=== PATIENT | female | born 1965 | race Caucasian/White ===

== ENCOUNTER 2017-07-04 14:29 | Outpatient (CLI) ==
[2013-04-13 14:42] VITALS: TEMP 97
[2016-03-30 18:19] VITALS: BMI 31.2
[2017-07-04 14:45] LABS: BILIRUBIN,URINE Negative (NEGATIVE); KETONES,URINE 1+ (NEGATIVE); LEUKOCYTE ESTERASE ,URINE Negative (NEGATIVE); NITRITE,URINE Negative (NEGATIVE); PROTEIN,URINE Negative (NEGATIVE); URINE, BLOOD Trace-intact (NEGATIVE)
[2017-07-04 14:46] LABS: ADD URINE MICROSCOPIC YES
[2017-07-04 14:54] LABS: COCAIN SCREEN,URINE NEGATIVE (NEGATIVE)
== END 2017-07-04 14:30 | disposition home or self-care (01) ==
LOC: LAB 14:29
PROVIDERS: ATTEND Nurse Practitioner Family
DX: M54.9 Dorsalgia, unspecified (principal); G89.29 Other chronic pain; Z79.899 Other long term (current) drug therapy
CPT/HCPCS: 80306; 81001

== ENCOUNTER 2017-07-19 08:38 | Outpatient (CLI) ==
[2013-04-13 14:42] VITALS: TEMP 97
[2016-03-30 18:19] VITALS: BMI 31.2
--- NOTE | 2017-07-19 10:35 | MAMMO ---
EXAM: Bilateral digital screening mammogram (2-D and 3-D) History: Baseline screening Comparison: None available. Findings: MLO and CC views of bilateral breasts demonstrate scattered fibroglandular breast parenchy ma. CAD was reviewed by the radiologist. Tomosynthesis was performed. There are no dominant masses , no suspicious microcalcifications and no architectural distortions. Impression: Negative mammogram. Recommend followup routine screening mammography in 1 year. BIRADS 1
--- NOTE | 2017-07-21 00:19 | MRI ---
EXAM: MRI of the thoracic spine . HISTORY: Pain in thoracic spine. COMPARISON: None of this type. PROCEDURE: Multiplanar, multisequence MRI protocol including sagittal T1-weighted, sagittal T2-weigh job, sagittal inversion recovery, coronal T2-weighted, axial T1-weighted and axial T2-weighted images . FINDINGS: Vertebral alignment demonstrates a normal kyphotic curvature mild dextroconvex curvature o f about 8 degrees. Vertebral body height is generally well maintained. In addition, there is minimal impression of the superior endplate of T12 associated with decreased T1W and increased in grain righ t ovary signal in the upper half of the vertebral bodies suggesting an acute to subacute compression fracture. Marrow signal is otherwise within normal limits for age with exception of Modic type 1 sig nal changes in the anterior-superior endplate of T11 associated with a prominent ventral osteophyte. The intervertebral discs are generally well maintained respect to height and signal with modest jeremie ccation seen in the mid to lower thoracic discs. The caliber of the spinal canal is intrinsically wi thin normal limits. The spinal cord is normal in caliber and signal. The conus medullaris is normal in level and contour and signal. The prevertebral and paraspinous soft tissues appear to be within normal limits. Segmental analysis: C7-T1: There is no significant disc bulge at this level. The spinal canal is normal in caliber. The spinal cord is not significantly displaced or deformed. The neural foramina are not stenosed. T1-T2: There is no significant disc bulge at this level. The spinal canal is normal in caliber. The spinal cord is not significantly displaced or deformed. The neural foramina are not stenosed. T2-T3: There is no significant disc bulge at this level. The spinal canal is normal in caliber. The spinal cord is not significantly displaced or deformed. The neural foramina are not stenosed. T3-T4: There is no significant disc bulge at this level. The spinal canal is normal in caliber. The spinal cord is not significantly displaced or deformed. The neural foramina are not stenosed. T4-T5: There is no significant disc bulge at this level. The spinal canal is normal in caliber. The spinal cord is not significantly displaced or deformed. The neural foramen are not stenosed. T5-T6: There is no significant disc bulge at this level. The spinal canal is normal in caliber. The spinal cord is not significantly displaced or deformed. There is mild right foraminal stenosis due to facet arthropathy. T6-T7: There is no significant disc bulge at this level. The spinal canal is normal in caliber. The spinal cord is not significantly displaced or deformed. The neural foramina are not stenosed. T7-T8: There is no significant disc bulge at this level. The spinal canal is normal in caliber. The spinal cord is not significantly displaced or deformed. The neural foramina are not stenosed. T8-T9: There is no significant disc bulge at this level. The spinal canal is normal in caliber. The spinal cord is not significantly displaced or deformed. There is mild left foraminal stenosis. T9-T10: There is no significant disc bulge at this level. The spinal canal is normal in caliber. Th e spinal cord is not significantly displaced or deformed. There is mild bilateral foraminal stenosis. T10-T11: There is no significant disc bulge at this level. The spinal canal is normal in caliber. Th e spinal cord is not significantly displaced or deformed. There is mild right greater than left randy inal stenosis. T11-T12: There is no significant disc bulge at this level. The spinal canal is normal in caliber. Th e spinal cord is not significantly displaced or deformed. The neural foramina are not stenosed. T12-L1: There is no significant disc bulge at this level. The spinal canal is normal in caliber. The spinal cord is not significantly displaced or deformed. The neural foramina are not stenosed. IMPRESSION: 1.The MRI examination demonstrates decreased T1W and increased inversion recovery signal in the upper half of T12 suggesting the presence of an acute compression fracture. This is a potential cause of the patient's thoracic spine pain. The remaining thoracic vertebrae demonstrate normal height and si gnal. There are modic type 1 endplate changes in the anterior-superior endplate of T11 associated ve ntral spondylosis. 2.The remaining thoracic vertebrae are normal in height, alignment and signal. Intervertebral discs are generally well maintained with respect to height and signal. 3.There is no evidence of spinal canal stenosis at any of the reviewed levels. 4.There is evidence of mild right foraminal stenosis at T5-6, mild bilateral stenosis at T9-10 and mi ld right greater than left stenosis at T10-11.
== END 2017-07-19 08:39 | disposition home or self-care (01) ==
LOC: RAD 08:38
PROVIDERS: ATTEND Nurse Practitioner Family
DX: Z12.31 Encounter for screening mammogram for malignant neoplasm of breast (principal); M54.6 Pain in thoracic spine; G89.29 Other chronic pain
CPT/HCPCS: 77067

== ENCOUNTER 2017-07-24 14:24 | Outpatient (CLI) ==
[2013-04-13 14:42] VITALS: TEMP 97
[2016-03-30 18:19] VITALS: BMI 31.2
[2017-07-24 14:33] LABS: BASOPHILS # (AUTO) 0.1 K/uL (0-0.2); BASOPHILS % (AUTO) 0.6 % (0.0-3.0); EOSINOPHILS # (AUTO) 0.2 K/ul (0.0-0.7); EOSINOPHILS % (AUTO) 1.7 % (0.0-7.0); HEMATOCRIT 44.2 % (37.0-47.0); IMMATURE GRANULOCYTE % (AUTO) 0.4 % (0.0-5.0); LYMPHOCYTES # (AUTO) 3.3 K/uL (0.60-3.4); MEAN CORPUSCULAR HEMOGLOBIN 32.5 pg (27.0-31.0); MEAN CORPUSCULAR HGB CONC 33.9 (31.8-35.4); MEAN CORPUSCULAR VOLUME 95.9 fl (81.0-99.0); MONOCYTES # (AUTO) 0.6 K/uL (0.4-2.0); MONOCYTES % (AUTO) 4.8 (0-10); NEUTROPHILS # (AUTO) 8.5 K/ul (2.0-6.9); NEUTROPHILS % (AUTO) 66.5; PLATELET COUNT 396 10^3/uL (140-440); RED BLOOD COUNT 4.61 10^6/ul (4.20-5.40)
[2017-07-24 15:12] LABS: ALBUMIN 3.7 g/dL (3.4-5.0); ALBUMIN/GLOBULIN RATIO 0.86; BILIRUBIN,TOTAL 0.23 mg/dL (0.00-1.20); BUN/CREATININE RATIO 6.32; CALCIUM 9.9 mg/dL (8.2-10.2); CHOL/HDL RATIO 5.8 (4.5-5.5); CREATININE 0.79 mg/dL (0.60-1.30)
== END 2017-07-24 14:25 | disposition home or self-care (01) ==
LOC: LAB 14:24
PROVIDERS: ATTEND Nurse Practitioner Family
DX: M54.9 Dorsalgia, unspecified (principal); G89.29 Other chronic pain; Z79.899 Other long term (current) drug therapy
CPT/HCPCS: 36415; 80053; 80061; 84443; 85025

== ENCOUNTER 2017-10-24 11:34 | Emergency (ER) ==
[2017-10-24 11:39] VITALS: BP 142/96; TEMP 98.1; BMI 24.4
--- NOTE | 2017-10-24 12:18 | ED.PDOC ---
General ED Provider: Dr. HARIS HIDALGO Chief Complaint: Medication Refill Stated Complaint: Out of Risperidone 1 mg takes 2 times a day; 20 year history Paranoid Schizophrenia. Two prescribing psychiatrists have retired - has new appointment on the . Time Seen by Physician: 12:20 Mode of Arrival: Walk-In Information Source: Patient Exam Limitations: No limitations Primary Care Provider: JUNITO RAY Nursing and Triage Documentation Reviewed and Agree: Yes Reviewed sepsis parameters & appropriate labs ordered?: Yes System Inflammatory Response Syndrome: Not Applicable Sepsis Protocol: For patient's 13 years and over: Temp is 96.8 and below OR 101 and greater Pulse >90 BPM Resp >20/minute Acutely Altered Mental Status Are patient's symptoms suggestive of a new infection, such as: -Pneumonia -Skin, Soft Tissue -Endocarditis -UTI -Bone, Joint Infection -Implantable Device -Acute Abdominal Infection -Wound Infection -Meningitis -Blood Stream Catheter Infection -Unknown Review of Systems - Review Of Systems Constitutional: Reports: No symptoms Neurological: Reports: No symptoms All Other Systems: Reviewed and Negative Past Medical History - Past Medical History Previously Healthy: Yes Endocrine: Reports: None Cardiovascular: Reports: None Respiratory: Reports: None Hematological: Reports: None Gastrointestinal: Reports: None Genitourinary: Reports: None Neuro/Psych: Reports: Schizophrenia (Paranoid schizophrenia - 20 year history; takes risperidone 1 mg BID) Musculoskeletal: Reports: None Cancer: Reports: None Last Menstrual Period: n/a - Surgical History General Surgical History: Reports: None - Family History Family History: Reports: None - Social History Smoking Status: Current every day smoker, Heavy tobacco smoker Hx Substance Use: No Alcohol Screening: None Physical Exam - Physical Exam Appearance: Well-appearing Eyes: MARK, EOMI Neck: Supple Respiratory: Airway patent, Breath sounds clear, Breath sounds equal Cardiovascular: RRR, Pulses normal Skin: Warm, Dry, Normal color Neurological: Alert, Oriented Psychiatric: Affect appropriate, Mood appropriate Critical Care Note - Critical Care Note Total Time (mins): 10 Course - Course Vital Signs: Temp Pulse Resp BP Pulse Ox 10/24/17 11:34 98.1 F 93 H 16 142/96 H 98 Departure - Departure Time of Disposition: 12:30 Disposition: HOME SELF-CARE Discharge Problem: Medication refill Condition: Good Pt referred to PMD for follow-up: Yes (Keep planned appoimtment on [facility]) IPMP verified?: No (No narcotic prescribed`) Additional Instructions: Take your risperidone as you have been previously prescribed; must follow up with psychiatrist as planned on the of this month. Allergies/Adverse Reactions: Allergies No Known Allergies Allergy (Verified 10/24/17 11:39) Home Medications: Ambulatory Orders Risperdal 1 mg PO BID #60 02/21/17 Disposition Discussed With: Patient
== END 2017-10-24 12:45 | disposition home or self-care (01) ==
LOC: ED 11:34
DX: Z76.0 Encounter for issue of repeat prescription (principal); F20.0 Paranoid schizophrenia; F17.210 Nicotine dependence, cigarettes, uncomplicated
CPT/HCPCS: 99283

== ENCOUNTER 2017-12-16 13:11 | Outpatient (CLI) ==
[2013-04-13 14:42] VITALS: TEMP 97
== END 2017-12-16 13:12 | disposition home or self-care (01) ==
LOC: RHC-LAB 13:11
PROVIDERS: ATTEND Nurse Practitioner Family
DX: E78.5 Hyperlipidemia, unspecified (principal)
CPT/HCPCS: 36415; 80053; 80061

== ENCOUNTER 2018-06-07 18:05 | Emergency (ER) ==
[2018-06-07 18:14] VITALS: BP 135/88; TEMP 98.5; BMI 24.5
--- NOTE | 2018-06-07 18:39 | ED.PDOC ---
General ED Provider: Dr. ANETTE PUENTES Chief Complaint: Abdominal Pain Stated Complaint: abdominal pain Time Seen by Physician: 18:12 (sewn with Diego at all times ) Mode of Arrival: Walk-In Information Source: Patient Exam Limitations: No limitations (emotional pt stated she has abdominal pain chronic with chronic diarrhea ) Primary Care Provider: MAX [facility]CH[facility] Nursing and Triage Documentation Reviewed and Agree: Yes Does patient meet sepsis criteria?: No System Inflammatory Response Syndrome: Not Applicable Sepsis Protocol: For patient's 13 years and over: Temp is 96.8 and below OR 101 and greater Pulse >90 BPM Resp >20/minute Acutely Altered Mental Status Are patient's symptoms suggestive of a new infection, such as: -Pneumonia -Skin, Soft Tissue -Endocarditis -UTI -Bone, Joint Infection -Implantable Device -Acute Abdominal Infection -Wound Infection -Meningitis -Blood Stream Catheter Infection -Unknown GI Complaint Exam - Abdominal Pain Complaint/Exam Onset: Gradual Duration: chronic worse today no fever or vomiting reported Symptoms Are: Resolved Timing: Intermittent Current Severity: None Location of Pain: Diffuse Radiates To: Denies: Chest, Back, Flank Character: Reports: Dull Aggravating: Reports: None Alleviating: Reports: None Associated Signs and Symptoms: Reports: Diarrhea. Denies: Diaphoresis, Fever, Cough, Chest pain, Dizziness, Back pain, Constipation, Blood in stool, Dysuria, Urinary frequency, Decreased urine output, Decreased appetite, Vaginal bleeding , Vaginal discharge, Nausea, Vomiting, Sore throat, Decreased activity Related History: Reports: Similar episode Cardiac Risk Factors: Reports: Elevated lipids Ectopic Risk Factors: Reports: None Ovarian Torsion Risk Factors: Reports: None Surgical Obstruction Risk Factors: Reports: None Related Surgical History: Reports: None Patient Rh Status: Unknown Abdominal Findings: Present: None (no vaginal exam done ) Differential Diagnoses: Bowel Obstruction, Constipation, Gastroenteritis, UTI Review of Systems - Review Of Systems Constitutional: Reports: No symptoms Eyes: Reports: No symptoms Ears, Nose, Mouth, Throat: Reports: No symptoms Respiratory: Reports: No symptoms Cardiac: Reports: No symptoms GI: Reports: Abdominal pain, Diarrhea : Reports: No symptoms Musculoskeletal: Reports: No symptoms Skin: Reports: No symptoms Neurological: Reports: No symptoms Endocrine: Reports: No symptoms Hematologic/Lymphatic: Reports: No symptoms All Other Systems: Reviewed and Negative Past Medical History - Past Medical History Previously Healthy: Yes Endocrine: Reports: Dyslipidemia Cardiovascular: Reports: None Respiratory: Reports: None Hematological: Reports: None Gastrointestinal: Reports: None Genitourinary: Reports: None Neuro/Psych: Reports: Schizophrenia (Paranoid schizophrenia - 20 year history; takes risperidone 1 mg BID) Musculoskeletal: Reports: None Cancer: Reports: None Last Menstrual Period: unknown - Surgical History General Surgical History: Reports: None - Family History Family History: Reports: None - Social History Smoking Status: Current every day smoker, Heavy tobacco smoker Hx Substance Use: No Alcohol Screening: None Physical Exam - Physical Exam Appearance: Well-appearing, No pain distress, Well-nourished Eyes: MARK, EOMI, Conjunctiva clear ENT: Ears normal, Nose normal, Oropharynx normal Respiratory: Airway patent, Breath sounds clear, Breath sounds equal, Respirations nonlabored Cardiovascular: RRR, Pulses normal, No rub, No murmur GI/: Soft, Nontender, No masses, Bowel sounds normal, No Organomegaly Musculoskeletal: Normal strength, ROM intact, No edema, No calf tenderness Skin: Warm, Dry, Normal color Neurological: Sensation intact, Motor intact, Reflexes intact, Cranial nerves intact, Alert, Oriented Psychiatric: Affect appropriate, Mood appropriate Physician Notification - Case Discussed Physician Notified: pmd Time of Notification: 19:00 (data pending) Critical Care Note - Critical Care Note Total Time (mins): 0 Course - Course Hematology/Chemistry: 06/07/18 18:53 06/07/18 18:53 Orders, Labs, Meds: Lab Review 06/07/18 06/07/18 06/07/18 18:53 18:53 18:55 WBC 9.07 RBC 4.26 Hgb 13.7 Hct 40.3 MCV 94.6 MCH 32.2 H MCHC 34.0 RDW Coeff of Renata 13.2 Plt Count 329 Immature Gran % (Auto) 0.2 Neut % (Auto) 46.4 Lymph % (Auto) 44.0 [place] % (Auto) 6.9 Eos % (Auto) 1.9 Baso % (Auto) 0.6 Immature Gran # (Auto) 0.0 Neut # (Auto) 4.2 Lymph # (Auto) 4.0 H [place] # (Auto) 0.6 Eos # (Auto) 0.2 Baso # (Auto) 0.1 Sodium 138 Potassium 3.5 Chloride 105 Carbon Dioxide 26 Anion Gap 10.5 BUN 6 L Creatinine 0.73 Estimated GFR (MDRD) 84.00 BUN/Creatinine Ratio 8.21 Glucose 76 Calcium 9.7 Total Bilirubin 0.3 AST 14 L ALT 6 L Alkaline Phosphatase 72 Total Protein 7.1 Albumin 3.7 Globulin 3.4 Albumin/Globulin Ratio 1.09 Amylase 51 Lipase 23 Urine Color Yellow Urine Clarity Clear Urine pH 5.5 Ur Specific [place] >=1.030 Urine Protein Negative Urine Glucose (UA) Negative Urine Ketones Trace Urine Blood Trace-intact Urine Nitrite Negative Urine Bilirubin 1+ Urine Urobilinogen 1.0 Ur Leukocyte Esterase Negative Urine Microscopic RBC 0-2 Urine Microscopic WBC 0-2 Ur Squamous Epith Cells Not present Urine Bacteria 1+ Urine Mucus 3+ Orders Category Date Time Status AMYLASE Stat LAB 06/07/18 18:53 Completed CBC W/ AUTO DIFF Stat LAB 06/07/18 18:53 Completed COMPREHENSIVE METABOLIC PANEL Stat LAB 06/07/18 18:53 Completed LIPASE Stat LAB 06/07/18 18:53 Completed URINALYSIS C & S IF INDICATED Stat LAB 06/07/18 18:55 Completed URINE CULTURE Stat LAB 06/07/18 18:[address] HEAD W/O CONTRAST Stat RADS 06/07/18 18:43 Completed Vital Signs: Temp Pulse Resp BP Pulse Ox 06/07/18 18:08 98.5 F 88 20 135/88 97 Departure - Departure Time of Disposition: 19:00 Disposition: HOME SELF-CARE Discharge Problem: Abdominal pain Instructions: Abdominal Pain (ED) Condition: Good Pt referred to PMD for follow-up: Yes IPMP verified?: No Additional Instructions: Please call your Family Physician as soon as possible to schedule a follow-up appointment. Allergies/Adverse Reactions: Allergies No Known Allergies Allergy (Verified 06/07/18 18:15) Home Medications: Ambulatory Orders Risperdal 1 mg PO BID #60 02/21/17 Disposition Discussed With: Patient
--- NOTE | 2018-06-07 19:22 | CT ---
EXAM: CT head without contrast HISTORY: Headache COMPARISON: None. TECHNIQUE: Helical axial CT of the head was performed without contrast. Coronal and sagittal reconstr uctions were performed. FINDINGS: There is no acute intracranial abnormality. There is no hemorrhage, mass, midline shift, abnormal ex tra-axial fluid collection, hydrocephalus or evolving ischemia. The alejandro-white matter junction is wel l maintained. Brain parenchyma, ventricles and sulci are normal. There are no acute calvarial lesions. Visualized orbits and globes are unremarkable. The mastoid ai r cells demonstrate no significant soft tissue opacification. The visualized paranasal sinuses show n o air-fluid levels. IMPRESSION: Negative head CT
== END 2018-06-07 20:05 | disposition home or self-care (01) ==
LOC: ED 18:05
DX: R10.9 Unspecified abdominal pain (principal); G89.29 Other chronic pain; R19.7 Diarrhea, unspecified; E78.5 Hyperlipidemia, unspecified; F17.210 Nicotine dependence, cigarettes, uncomplicated; Z79.899 Other long term (current) drug therapy
CPT/HCPCS: 36415; 80053; 81001; 82150; 83690; 85025; 87086; 99283

== ENCOUNTER 2018-10-31 12:03 | Outpatient (CLI) ==
[2013-04-13 14:42] VITALS: TEMP 97
== END 2018-10-31 12:04 | disposition home or self-care (01) ==
LOC: RHC-LAB 12:03
PROVIDERS: ATTEND Nurse Practitioner Family
DX: M54.6 Pain in thoracic spine (principal); Z79.899 Other long term (current) drug therapy; Z00.00 Encounter for general adult medical examination without abnormal findings
CPT/HCPCS: 36415; 80053; 80061; 84443; 85025

== ENCOUNTER 2018-11-19 08:57 | Outpatient (CLI) | payer OTHER ==
[2013-04-13 14:42] VITALS: TEMP 97
--- NOTE | 2018-11-19 09:40 | DEXA ---
EXAM: Bone densitometry. History: Asymptomatic menopausal state. Findings: Evaluation of the lumbar spine reveals a total bone mineral density of 1.076 grams per centimeter squ ared with T-score of negative 0.9. Evaluation of the left hip reveals a total bone mineral density of 0.816 grams per centimeter squared with T-score of negative 1.5. Evaluation of the right hip reveals a total bone mineral density of 0.834 grams per centimeter square d with T-score of negative 1.4. FRAX: 10-year probability for major osteoporotic fracture is 9.3% and 1.3% for hip fracture. Impression: 1. Normal bone mineral density of the lumbar spine. 2. Osteopenia of bilateral hips
--- NOTE | 2018-11-19 09:46 | MAMMO ---
EXAM: Bilateral digital screening mammogram (2-D and 3-D) History: Screening Comparison: Bilateral mammogram 07/19/2017 Findings: MLO and CC views of bilateral breasts demonstrate scattered fibroglandular breast parenchy ma. CAD was reviewed by the radiologist. Tomosynthesis was performed. There are no dominant masses , no suspicious microcalcifications and no architectural distortions Impression: Stable negative mammogram. Recommend followup routine screening mammography in 1 year. BIRADS 1, negative
--- NOTE | 2018-11-19 21:14 | MRI ---
EXAM: Thoracic spine MRI without contrast. HISTORY: Thoracic spine pain. COMPARISON: Thoracic spine MRI 07/19/2017. TECHNIQUE: Multiplanar, multisequence MR images were acquired of the thoracic spine without contrast . FINDINGS: 12 rib-bearing thoracic vertebra are present. The thoracic cord has normal signal intensi ty. Conus medullaris ends at L1-2. There is mild 12 degrees mid thoracic dextroscoliosis without si gnificant change. Small ventral and lateral osteophytes are present in the mid thoracic spine and th ere is a stippled heterogeneous T1, bright T2, STIR signal lesion in the T10 vertebra that may repres ent an atypical benign intraosseous hemangioma. A typical hemangioma is present at T2. There is mil d endplate irregularity in the mid thoracic spine and there is ventral spondylosis at T7-8, T10-11 an d L1-2 with type 2 endplate changes. The thoracic vertebra are generally normal in height and intrin sic bone marrow signal. There is a minor chronic superior endplate compression fracture of T12 with concavity of the superior endplate. Degree of compression scarring is stable compared to previously. At T11, there is ventral spondylosis with a type 2 changes along the anterior superior corner of T1 1. No acute compression fractures are present. The partially visualized liver is heterogeneous with artifact projecting over the liver which limits interpretation. The spleen and both kidneys are unremarkable. Small bilateral pleural effusions are present. T1-2: The intervertebral disc. Minor bilateral lateral endplate osteophytes and bilateral facet art hropathy which causes moderate left and mild to moderate right neural foraminal stenosis. There is n o central canal stenosis. T2-3: The intervertebral disc is normal. There is mild left hypertrophic facet arthropathy and radha ed right and moderate left neural foraminal stenosis. T3-4: There is a minor dorsal spondylotic disc bulge that narrows the right lateral recess and infer ior right neural foramen. Mild right facet arthropathy is present and there is mild left mild to mod erate right neural foraminal stenosis. T4-5: The intervertebral disc is normal. Mild right hypertrophic facet arthropathy is present which causes moderate right neural foraminal stenosis. T5-6: The intervertebral disc is normal. Moderate right hypertrophic facet arthropathy is present w hich causes moderately severe right neural foraminal stenosis. There is also mild left neural forami nal stenosis. T6-7: The intervertebral disc is normal. There is mild left and mild to moderate right neural randy inal stenosis. T7-8: The intervertebral disc is normal. There is mild to moderate right and mild left neural randy inal stenosis. T8-9: The intervertebral disc is normal. Left facet hypertrophy is present and there is mild right and mild to moderate left neural foraminal stenosis. T9-10: There is a minor disc bulge and moderate right and mild to moderate left neural foraminal ashish nosis. T10-11: The intervertebral disc is normal. Moderate right anterolateral endplate osteophytes presen t. There is bilateral hypertrophic facet arthropathy and ligamentum flavum hypertrophy which narrows the posterolateral thecal sac. There is right lateral recess stenosis with possible encroachment on the right T11 nerve roots and moderate right neural foraminal stenosis. T11-12: The intervertebral disc is normal. There is no central canal stenosis or foraminal stenosis . T12-L1: The intervertebral disc is normal. IMPRESSION: 1. Mild thoracic degenerative spondylosis without disc herniations or spinal stenosis. 2. Minor chronic superior endplate compression fracture T12 with concavity of the superior endplate. Degree of compression is stable compared the prior MRI. 3. No acute compression fractures. 4. Multilevel foraminal stenosis.
== END 2018-11-19 08:58 | disposition home or self-care (01) ==
LOC: RAD 08:57
PROVIDERS: ATTEND Nurse Practitioner Family
DX: Z12.31 Encounter for screening mammogram for malignant neoplasm of breast (principal); M54.6 Pain in thoracic spine; S22.080A Wedge compression fracture of T11-T12 vertebra, initial encounter for closed fracture; M99.82 Other biomechanical lesions of thoracic region; Z78.0 Asymptomatic menopausal state